=== PATIENT | female | born 1960 | race African-American/Black ===

== ENCOUNTER 2022-04-07 18:42 | Emergency (ER) | payer OTHER ==
[2022-04-07 19:34] LABS: Actual Bicarbonate (HCO3v) 21 mEq/L (22-28); Base Excess -3.1 mEq/L (-2.0 to +3.0); Chloride (VBG) 104 mmol/L (98-106); Potassium (VBG) 3.32 mmol/L (3.70-5.30); Puncture Site Other Site; Sodium 139.2 mmol/L (133-146); pH (venous) 7.42 (7.32-7.43)
[2022-04-07 19:48] LABS: Hemoglobin 12.2 g/dL (12.0-15.5); Mean Corpuscular HGB CONC 35.9 g/dL (32.0-36.0); Mean Corpuscular Volume 89.2 fl (81.6-98.3); Mean Platelet Volume 9.5 fl (7.4-10.4); Platelet Count 392 10x3/uL (150-450); RBC Distribution Width 15.1 % (11.5-14.5); Red Blood Cell (RBC) Count 3.81 10x6/uL (3.90-5.03); White Blood Cell (WBC) Count 20.6 10x3/uL (3.5-10.5)
[2022-04-07 19:51] LABS: ALT (SGPT) 25 U/L (8-55); AST (SGOT) 15 U/L (5-34); Albumin 3.6 g/dL (3.4-4.8); Alkaline Phosphatase 249 U/L (40-110); Anion Gap 18 mmol/L (10-20); BUN (Urea Nitrogen) 6 mg/dL (9.8-20.1); Bilirubin, Total 1.2 mg/dL (0.2-1.2); Calc. Creatinine Clearance 0 mL/min (70-130); Calcium 8.9 mg/dL (7.8-10.44); Carbon Dioxide 21 mmol/L (23-31); Chloride 103 mmol/L (98-107); Glucose 232 mg/dL (80-115); Potassium 3.4 mmol/L (3.5-5.1); Protein, Total 6.6 g/dL (5.8-8.1); Sodium 139 mmol/L (136-145)
[2022-04-07 20:26] LABS: Band 12 % (5-11); Eosinophils 4 % (0-10); Lymphocytes 7 % (21-51); Monocytes 5 % (0-10); Reactive Lymphocytes 2 % (0-10)
[2022-04-07 20:27] LABS: Neutrophil 70 % (42-75); Platelet Morphology Comment Appears Adequate
[2022-04-07 20:28] LABS: MDiff Complete? YES; RBC Morphology Normal
[2022-04-07 20:31] LABS: SARS-CoV-2 NAA Rapid Test Not Detected (NotDetected)
[2022-04-07] MEDS ORDERED: Ketorolac Tromethamine 30 MG/ML VIAL ONE (22:18)
[2022-04-07] MEDS ORDERED: Acetaminophen 500 MG TAB ONE (22:18)
[2022-04-07 22:30] LABS: Lactic Acid 2.6 mmol/L (0.5-2.2)
== END 2022-04-07 22:50 | disposition home or self-care (01) ==
LOC: CSHERS 18:42
DX: J20.8 Acute bronchitis due to other specified organisms (principal); E11.42 Type 2 diabetes mellitus with diabetic polyneuropathy; Z20.822 Contact with and (suspected) exposure to COVID-19; I10 Essential (primary) hypertension; E78.5 Hyperlipidemia, unspecified; F17.210 Nicotine dependence, cigarettes, uncomplicated
CPT/HCPCS: 36415; 71045; 80053; 82805; 83605; 83880; 84484; 85025; 87040; 87077; 87149; 87186; 93005; 96374; J1885; U0002

== ENCOUNTER 2022-04-09 14:12 | Inpatient (IN) | payer OTHER ==
[2022-04-09 15:19] LABS: Hemoglobin 12.8 g/dL (12.0-15.5); Mean Corpuscular HGB CONC 34.9 g/dL (32.0-36.0); Mean Corpuscular Hemoglobin 31.9 pg (27.0-33.0); Mean Corpuscular Volume 91.5 fl (81.6-98.3); Mean Platelet Volume 9.5 fl (7.4-10.4); Platelet Count 511 10x3/uL (150-450); RBC Distribution Width 14.9 % (11.5-14.5); Red Blood Cell (RBC) Count 4.01 10x6/uL (3.90-5.03)
[2022-04-09] MEDS ORDERED: Piperacillin/Tazobactam 4.5 GM VIAL ONE (15:19)
[2022-04-09 15:28] LABS: ALT (SGPT) 17 U/L (8-55); AST (SGOT) 11 U/L (5-34); Albumin 3.8 g/dL (3.4-4.8); Alkaline Phosphatase 228 U/L (40-110); Anion Gap 19 mmol/L (10-20); BUN (Urea Nitrogen) 7 mg/dL (9.8-20.1); Calc. Creatinine Clearance 0 mL/min (70-130); Calcium 9.6 mg/dL (7.8-10.44); Carbon Dioxide 24 mmol/L (23-31); Chloride 97 mmol/L (98-107); Globulin 4.4 g/dL (2.4-3.5); Glucose 221 mg/dL (80-115); Potassium 4.3 mmol/L (3.5-5.1); Protein, Total 8.2 g/dL (5.8-8.1); Sodium 136 mmol/L (136-145)
[2022-04-09 16:18] LABS: Band 10 % (5-11); Lymphocytes 8 % (21-51); Monocytes 2 % (0-10)
[2022-04-09 16:19] LABS: Neutrophil 80 % (42-75)
[2022-04-09 16:20] LABS: Large Platelets SLIGHT; Platelet Clumps SLIGHT; Platelet Morphology Comment Appears Increased
[2022-04-09 16:21] LABS: MDiff Complete? YES
[2022-04-09] MEDS ORDERED: Ondansetron PF 4 MG/2 ML Vial ONE (16:42)
[2022-04-09] MEDS ORDERED: Acetaminophen 500 MG TAB ONE (16:42)
[2022-04-09] MEDS ORDERED: Guaifenesin DM 100-10/5 ML UDCUP PO PRN (17:01)
[2022-04-09] MEDS ORDERED: Acetaminophen 325 MG TAB PO PRN (17:01)
[2022-04-09 17:11] LABS: Bilirubin Neg (Negative); Blood, Urine 25 (Negative); Clarity Cloudy (Clear); Glucose, Urine (Dipstick) 100 mg/dL (Negative); Ketone, Urine 5 mg/dL (Negative); Leukocyte 500 (Negative); Nitrite Negative (Negative); Protein, Urine (Dipstick) 100 mg/dl (Neg-Trace); Specific Gravity, Urine 1.015 (1.002-1.036); Urobilinogen Normal mg/dL (Less than 2)
[2022-04-09 17:22] LABS: WBC/HPF 21-50 HPF (0-3)
[2022-04-09 17:30] LABS: Bacteria/HPF 3+ HPF (None Seen); Oval Fat Bodies/HPF 3+ HPF (None Seen)
[2022-04-09] MEDS ORDERED: Dextrose 50% Abboject 50 ML SYRINGE SLOW IVP PRN (18:27)
[2022-04-09] MEDS ORDERED: Dextrose 5% in Water 1,000 ML IV PRN (18:27)
[2022-04-09] MEDS ORDERED: Ketorolac Tromethamine 30 MG/ML VIAL IVP SCH (18:30)
[2022-04-09] MEDS: Famotidine 20 MG TAB PO SCH (20:22)
[2022-04-09] MEDS: Cefepime 2 GM in Sodium Chloride 0.9% 100 ML IVPB SCH (20:22)
[2022-04-09] MEDS ORDERED: diphenhydrAMINE 25 MG CAP PO PRN (21:48)
[2022-04-09] MEDS: Ondansetron PF 4 MG/2 ML Vial IVP PRN (22:03)
[2022-04-09] MEDS: HYDROcodone/Acetaminophen 5/325 mg Tablet PO PRN (22:03)
[2022-04-09 22:46] VITALS: BMI 36.5
[2022-04-10] MEDS: Ketorolac Tromethamine 30 MG/ML VIAL IVP SCH ×5 (00:24→23:31)
[2022-04-10] MEDS: HYDROcodone/Acetaminophen 5/325 mg Tablet PO PRN ×4 (01:53→20:29)
[2022-04-10] MEDS ORDERED: ALPRAZolam 0.25 MG TAB PO PRN (04:14)
[2022-04-10] MEDS ORDERED: diphenhydrAMINE 12.5 MG/5 ML UDCUP PO SCH (04:15)
[2022-04-10] MEDS: Senokot S 8.6-50 MG TAB PO PRN (04:27)
[2022-04-10 04:54] LABS: #Basophils 0.1 10x3/uL (0.0-0.2); #Eosinphils 0.1 10x3/uL (0.0-0.5); #Monocytes 1.3 10x3/uL (0.0-1.1); #Neutrophils 15.2 10x3/uL (1.5-8.4); %Basophils 0.6 % (0.0-2.0); %Eosinophils 0.6 % (0.0-6.0); %Lymphocytes 13.8 % (18.0-47.0); %Monocytes 6.4 % (0.0-10.0); %Neutrophils 77.6 % (40.0-75.0); Hemoglobin 11.3 g/dL (12.0-15.5); Mean Corpuscular HGB CONC 35.5 g/dL (32.0-36.0); Mean Corpuscular Hemoglobin 31.6 pg (27.0-33.0); Mean Corpuscular Volume 88.8 fl (81.6-98.3); Mean Platelet Volume 9.6 fl (7.4-10.4); Platelet Count 456 10x3/uL (150-450); Red Blood Cell (RBC) Count 3.58 10x6/uL (3.90-5.03); White Blood Cell (WBC) Count 19.6 10x3/uL (3.5-10.5)
[2022-04-10 05:13] LABS: Anion Gap 16 mmol/L (10-20); BUN (Urea Nitrogen) 9 mg/dL (9.8-20.1); Calc. Creatinine Clearance 127 mL/min (70-130); Calcium 8.4 mg/dL (7.8-10.44); Carbon Dioxide 21 mmol/L (23-31); Chloride 102 mmol/L (98-107); Glucose 139 mg/dL (80-115); Potassium 3.4 mmol/L (3.5-5.1); Sodium 136 mmol/L (136-145)
[2022-04-10] MEDS: Ondansetron PF 4 MG/2 ML Vial IVP PRN ×3 (05:50→18:40)
[2022-04-10] MEDS: Famotidine 20 MG TAB PO SCH ×2 (10:08→20:30)
[2022-04-10] MEDS: Enoxaparin Sodium 40 MG/0.4 ML SYRINGE SC SCH (10:08)
[2022-04-10] MEDS: Nicotine 14 MG PATCH TD SCH (10:08)
[2022-04-10] MEDS: Cefepime 2 GM in Sodium Chloride 0.9% 100 ML IVPB SCH (10:08)
[2022-04-10] MEDS: Lantus 1000 UNITS/10 ML VIAL SC SCH (10:09)
[2022-04-10] MEDS: Insulin Regular 300 UNITS/3 ML VIAL SC PRN (13:12)
[2022-04-10] MEDS: ALPRAZolam 0.25 MG TAB PO PRN (15:59)
[2022-04-10] MEDS ORDERED: Dextrose 5% in Water 1,000 ML ONE (16:00)
[2022-04-10] MEDS: Lactated Ringer's 1,000 ML IV SCH (17:24)
[2022-04-10] MEDS: traZODone HCl 50 MG TAB PO PRN (20:29)
[2022-04-10] MEDS: Melatonin 3 MG TAB PO PRN (20:30)
[2022-04-11] MEDS: ALPRAZolam 0.25 MG TAB PO PRN (01:31)
[2022-04-11] MEDS: HYDROcodone/Acetaminophen 5/325 mg Tablet PO PRN ×2 (01:31→21:32)
[2022-04-11] MEDS: Ondansetron PF 4 MG/2 ML Vial IVP PRN (01:32)
[2022-04-11 04:23] LABS: ALT (SGPT) 11 U/L (8-55); AST (SGOT) 9 U/L (5-34); Albumin 3.7 g/dL (3.4-4.8); Alkaline Phosphatase 186 U/L (40-110); Anion Gap 20 mmol/L (10-20); BUN (Urea Nitrogen) 7 mg/dL (9.8-20.1); Calc. Creatinine Clearance 141 mL/min (70-130); Carbon Dioxide 20 mmol/L (23-31); Chloride 98 mmol/L (98-107); Globulin 4.1 g/dL (2.4-3.5); Glucose 160 mg/dL (80-115); Potassium 3.2 mmol/L (3.5-5.1); Protein, Total 7.8 g/dL (5.8-8.1); Sodium 135 mmol/L (136-145)
[2022-04-11] MEDS: Ketorolac Tromethamine 30 MG/ML VIAL IVP SCH ×4 (06:18→23:32)
[2022-04-11] MEDS: Lactated Ringer's 1,000 ML IV SCH (06:19)
[2022-04-11] MEDS: Amlodipine 5 MG TAB PO SCH (09:31)
[2022-04-11] MEDS: Enoxaparin Sodium 40 MG/0.4 ML SYRINGE SC SCH (09:31)
[2022-04-11] MEDS: Lantus 1000 UNITS/10 ML VIAL SC SCH (09:31)
[2022-04-11] MEDS: Famotidine 20 MG TAB PO SCH ×2 (09:32→21:17)
[2022-04-11] MEDS: Nicotine 14 MG PATCH TD SCH (09:32)
[2022-04-11] MEDS: Atorvastatin Calcium 10 MG TAB PO SCH (09:32)
[2022-04-11] MEDS: tiZANidine HCl 4 MG TAB PO SCH ×4 (09:32→21:17)
[2022-04-11] MEDS ORDERED: Electrolyte Replacement Protocol 1 EACH FS SCH (11:00)
[2022-04-11 11:53] LABS: #Basophils 0.1 10x3/uL (0.0-0.2); #Monocytes 1.3 10x3/uL (0.0-1.1); #Neutrophils 14.9 10x3/uL (1.5-8.4); %Basophils 0.7 % (0.0-2.0); %Eosinophils 0.2 % (0.0-6.0); %Lymphocytes 12.1 % (18.0-47.0); %Monocytes 6.9 % (0.0-10.0); Hemoglobin 12.5 g/dL (12.0-15.5); Mean Corpuscular HGB CONC 35.3 g/dL (32.0-36.0); Mean Corpuscular Hemoglobin 31.9 pg (27.0-33.0); Mean Corpuscular Volume 90.3 fl (81.6-98.3); Mean Platelet Volume 9.3 fl (7.4-10.4); Platelet Count 489 10x3/uL (150-450); RBC Distribution Width 14.7 % (11.5-14.5); Red Blood Cell (RBC) Count 3.92 10x6/uL (3.90-5.03)
[2022-04-11] MEDS: Potassium Chloride 20 MEQ in Premix Bag 1 BAG IVPB SCH ×2 (12:16→19:08)
[2022-04-11] MEDS: Insulin Regular 300 UNITS/3 ML VIAL SC PRN ×3 (12:16→21:34)
[2022-04-11 12:19] LABS: Magnesium 1.6 mg/dL (1.6-2.6)
[2022-04-11] MEDS ORDERED: Magnesium 2 GM/50 ML(in water) 2 GM in Premix Bag 1 BAG IVPB SCH ×2 (14:00→21:00)
[2022-04-11] MEDS ORDERED: cefTRIAXone\\ROCEPHIN 2 GM in Sodium Chloride 0.9% 100 ML IVPB SCH ×2 (14:00→20:00)
[2022-04-11 16:45] LABS: Hemoglobin A1c 8.4 % (4.0-6.0)
[2022-04-11] MEDS ORDERED: Potassium Chloride 20 MEQ in Premix Bag 1 BAG IVPB SCH (21:00)
[2022-04-11] MEDS: cefTRIAXone\\ROCEPHIN 2 GM in Sodium Chloride 0.9% 100 ML IVPB SCH (23:24)
[2022-04-11] MEDS: Melatonin 3 MG TAB PO PRN (23:29)
[2022-04-12] MEDS: HYDROcodone/Acetaminophen 5/325 mg Tablet PO PRN ×4 (02:05→22:29)
[2022-04-12] MEDS: Ondansetron PF 4 MG/2 ML Vial IVP PRN (02:11)
[2022-04-12 05:24] LABS: #Basophils 0.2 10x3/uL (0.0-0.2); #Eosinphils 0.1 10x3/uL (0.0-0.5); #Monocytes 1.6 10x3/uL (0.0-1.1); #Neutrophils 13.7 10x3/uL (1.5-8.4); %Basophils 0.9 % (0.0-2.0); %Eosinophils 0.4 % (0.0-6.0); %Lymphocytes 15.1 % (18.0-47.0); %Monocytes 8.5 % (0.0-10.0); %Neutrophils 71.2 % (40.0-75.0); Hemoglobin 12.6 g/dL (12.0-15.5); Mean Corpuscular Hemoglobin 31.3 pg (27.0-33.0); Mean Corpuscular Volume 89.6 fl (81.6-98.3); Mean Platelet Volume 9.6 fl (7.4-10.4); Platelet Count 552 10x3/uL (150-450); RBC Distribution Width 14.4 % (11.5-14.5); Red Blood Cell (RBC) Count 4.02 10x6/uL (3.90-5.03); White Blood Cell (WBC) Count 19.2 10x3/uL (3.5-10.5)
[2022-04-12] MEDS: Ketorolac Tromethamine 30 MG/ML VIAL IVP SCH ×4 (05:27→23:50)
[2022-04-12] MEDS: Insulin Regular 300 UNITS/3 ML VIAL SC PRN ×2 (05:29→13:14)
[2022-04-12] MEDS: Amlodipine 5 MG TAB PO SCH (05:44)
[2022-04-12 07:23] LABS: Phosphorus 2.5 mg/dL (2.3-4.7)
[2022-04-12 07:54] LABS: ALT (SGPT) 11 U/L (8-55); AST (SGOT) 16 U/L (5-34); Albumin 3.4 g/dL (3.4-4.8); Alkaline Phosphatase 169 U/L (40-110); Anion Gap 20 mmol/L (10-20); BUN (Urea Nitrogen) 13 mg/dL (9.8-20.1); Bilirubin, Total 0.8 mg/dL (0.2-1.2); Calc. Creatinine Clearance 130 mL/min (70-130); Calcium 8.8 mg/dL (7.8-10.44); Carbon Dioxide 21 mmol/L (23-31); Chloride 98 mmol/L (98-107); Globulin 4.1 g/dL (2.4-3.5); Glucose 158 mg/dL (80-115); Magnesium 2.1 mg/dL (1.6-2.6); Potassium 4.2 mmol/L (3.5-5.1); Protein, Total 7.5 g/dL (5.8-8.1); Sodium 135 mmol/L (136-145)
[2022-04-12] MEDS: Ondansetron ODT 4 MG TAB PO PRN ×2 (08:33→18:03)
[2022-04-12] MEDS: ALPRAZolam 0.25 MG TAB PO PRN ×2 (08:35→22:30)
[2022-04-12] MEDS: tiZANidine HCl 4 MG TAB PO SCH ×4 (08:35→22:16)
[2022-04-12] MEDS: Atorvastatin Calcium 10 MG TAB PO SCH (08:35)
[2022-04-12] MEDS: Lantus 1000 UNITS/10 ML VIAL SC SCH (08:36)
[2022-04-12] MEDS: Enoxaparin Sodium 40 MG/0.4 ML SYRINGE SC SCH (08:36)
[2022-04-12] MEDS: Famotidine 20 MG TAB PO SCH ×2 (08:36→22:16)
[2022-04-12] MEDS: Nicotine 14 MG PATCH TD SCH (09:19)
[2022-04-12] MEDS: Senokot S 8.6-50 MG TAB PO PRN (09:24)
[2022-04-12] MEDS: traZODone HCl 50 MG TAB PO PRN (22:30)
[2022-04-12] MEDS: Melatonin 3 MG TAB PO PRN (22:30)
[2022-04-12] MEDS: cefTRIAXone\\ROCEPHIN 2 GM in Sodium Chloride 0.9% 100 ML IVPB SCH (23:50)
[2022-04-13] MEDS: Ondansetron PF 4 MG/2 ML Vial IVP PRN (02:48)
[2022-04-13] MEDS: HYDROcodone/Acetaminophen 5/325 mg Tablet PO PRN (04:33)
[2022-04-13 05:14] LABS: #Basophils 0.2 10x3/uL (0.0-0.2); #Eosinphils 0.2 10x3/uL (0.0-0.5); #Monocytes 1.3 10x3/uL (0.0-1.1); #Neutrophils 12.4 10x3/uL (1.5-8.4); %Lymphocytes 19.5 % (18.0-47.0); %Monocytes 7.2 % (0.0-10.0); %Neutrophils 67.5 % (40.0-75.0); Hemoglobin 12.9 g/dL (12.0-15.5); Mean Corpuscular HGB CONC 35.5 g/dL (32.0-36.0); Mean Corpuscular Hemoglobin 31.9 pg (27.0-33.0); Mean Corpuscular Volume 89.9 fl (81.6-98.3); Mean Platelet Volume 9.4 fl (7.4-10.4); Platelet Count 617 10x3/uL (150-450); RBC Distribution Width 14.5 % (11.5-14.5); Red Blood Cell (RBC) Count 4.04 10x6/uL (3.90-5.03); White Blood Cell (WBC) Count 18.3 10x3/uL (3.5-10.5)
[2022-04-13] MEDS: Ketorolac Tromethamine 30 MG/ML VIAL IVP SCH (05:26)
[2022-04-13 05:33] LABS: ALT (SGPT) 9 U/L (8-55); AST (SGOT) 10 U/L (5-34); Albumin 3.7 g/dL (3.4-4.8); Alkaline Phosphatase 171 U/L (40-110); Anion Gap 19 mmol/L (10-20); BUN (Urea Nitrogen) 10 mg/dL (9.8-20.1); Bilirubin, Total 0.7 mg/dL (0.2-1.2); Calc. Creatinine Clearance 136 mL/min (70-130); Calcium 8.8 mg/dL (7.8-10.44); Carbon Dioxide 24 mmol/L (23-31); Chloride 97 mmol/L (98-107); Globulin 3.8 g/dL (2.4-3.5); Glucose 156 mg/dL (80-115); Potassium 3.5 mmol/L (3.5-5.1); Protein, Total 7.5 g/dL (5.8-8.1); Sodium 136 mmol/L (136-145)
[2022-04-13 08:52] VITALS: BP 142/88; TEMP 98.9
[2022-04-13] MEDS ORDERED: Polyethylene Glycol 3350 17 GM Packet PO SCH (09:00)
[2022-04-13] MEDS: Amlodipine 5 MG TAB PO SCH (09:53)
[2022-04-13] MEDS: Famotidine 20 MG TAB PO SCH (09:53)
[2022-04-13] MEDS: Atorvastatin Calcium 10 MG TAB PO SCH (09:53)
[2022-04-13] MEDS: tiZANidine HCl 4 MG TAB PO SCH (09:53)
[2022-04-13] MEDS: Lantus 1000 UNITS/10 ML VIAL SC SCH (09:55)
[2022-04-13] MEDS: Enoxaparin Sodium 40 MG/0.4 ML SYRINGE SC SCH (10:21)
[2022-04-13] MEDS: Nicotine 14 MG PATCH TD SCH (10:21)
[2022-04-13] MEDS: ALPRAZolam 0.25 MG TAB PO PRN (10:22)
== END 2022-04-13 12:00 | disposition home or self-care (01) | DRG 871 ==
LOC: CSHERS 14:12 → CSHTELE 16:58
PROVIDERS: ADMIT Hospitalist; ATTEND Family Medicine
DX: A41.59 Other Gram-negative sepsis (principal); G93.41 Metabolic encephalopathy; Z16.29 Resistance to other single specified antibiotic; S31.000A Unspecified open wound of lower back and pelvis without penetration into retroperitoneum, initial encounter; K21.9 Gastro-esophageal reflux disease without esophagitis; E11.9 Type 2 diabetes mellitus without complications; E78.00 Pure hypercholesterolemia, unspecified; I10 Essential (primary) hypertension; M19.90 Unspecified osteoarthritis, unspecified site; F17.200 Nicotine dependence, unspecified, uncomplicated; R65.20 Severe sepsis without septic shock; E78.5 Hyperlipidemia, unspecified; K59.00 Constipation, unspecified; K76.0 Fatty (change of) liver, not elsewhere classified; Z79.84 Long term (current) use of oral hypoglycemic drugs; Z98.51 Tubal ligation status; Z79.899 Other long term (current) drug therapy; Z79.4 Long term (current) use of insulin; Z86.73 Personal history of transient ischemic attack (TIA), and cerebral infarction without residual deficits; Z98.890 Other specified postprocedural states; Z79.82 Long term (current) use of aspirin
CPT/HCPCS: 36415; 36416; 71045; 74176; 76705; 78227; 80048; 80053; 81001; 83036; 83605; 83735; 83880; 84100; 84145; 85025; 85652; 86140; 87040; 87070; 87077; 87086; 87149; 87186; 87205; 93306; 94760; 96365; 96375; A9537; J0692; J0696; J1650; J1815; J1885; J2405; J2543; J3475; J3480; J3490; J7070; J7120; Q0162; Q0163

== ENCOUNTER 2022-09-05 14:12 | Emergency (ER) | payer OTHER ==
[2022-09-05] MEDS ORDERED: Acetaminophen 500 MG TAB ONE (15:18)
[2022-09-05] MEDS ORDERED: predniSONE 20 MG TAB ONE (15:18)
[2022-09-05] MEDS ORDERED: tiZANidine HCl 4 MG TAB PO SCH (15:30)
[2022-09-05] MEDS ORDERED: Lantus 1000 UNITS/10 ML VIAL SC SCH (15:30)
== END 2022-09-05 16:15 | disposition home or self-care (01) ==
LOC: CSHERS 14:12
DX: M17.0 Bilateral primary osteoarthritis of knee (principal); E11.65 Type 2 diabetes mellitus with hyperglycemia; E78.00 Pure hypercholesterolemia, unspecified; I10 Essential (primary) hypertension; K21.9 Gastro-esophageal reflux disease without esophagitis
CPT/HCPCS: 99284; J1815; J7512

== ENCOUNTER 2024-04-03 03:02 | Emergency (ER) | payer MEDICARE, OTHER ==
[2024-04-03] MEDS ORDERED: Ondansetron PF 4 MG/2 ML Vial ONE (03:32)
[2024-04-03 04:09] LABS: ALT (SGPT) 25 U/L (8-55); AST (SGOT) 12 U/L (5-34); Albumin 3.4 g/dL (3.4-4.8); Alkaline Phosphatase 99 U/L (40-110); Anion Gap 15 mmol/L (10-20); BUN (Urea Nitrogen) 11 mg/dL (9.8-20.1); Bilirubin, Total 0.7 mg/dL (0.2-1.2); Calc. Creatinine Clearance 0 mL/min (70-130); Calcium 8.9 mg/dL (7.8-10.44); Carbon Dioxide 30 mmol/L (23-31); Chloride 98 mmol/L (98-107); Estimated GFR 73; Globulin 3.3 g/dL (2.4-3.5); Glucose 191 mg/dL (80-115); Lipase 28 U/L (8-78); Magnesium 1.6 mg/dL (1.6-2.6); Potassium 4.4 mmol/L (3.5-5.1); Protein, Total 6.7 g/dL (5.8-8.1); Sodium 139 mmol/L (136-145); Troponin I Less than 0.010 ng/mL (< 0.028)
[2024-04-03 04:20] LABS: #Eosinphils 0.08 10x3/uL (0.0-0.5); #Monocytes 0.68 10x3/uL (0.0-1.1); #Neutrophils 12.47 10x3/uL (1.5-8.4); %Basophils 0.6 % (0.0-2.0); %Eosinophils 0.5 % (0.0-6.0); %Lymphocytes 15.7 % (18.0-47.0); %Monocytes 4.3 % (0.0-10.0); %Neutrophils 78.5 % (40.0-75.0); Hematocrit 38.6 % (34.9-44.5); Hemoglobin 13.4 g/dL (12.0-15.5); Mean Corpuscular HGB CONC 34.7 g/dL (32.0-36.0); Mean Corpuscular Hemoglobin 34.9 pg (27.0-33.0); Mean Corpuscular Volume 100.5 fL (81.6-98.3); Platelet Count 492 10x3/uL (150-450); RBC Distribution Width 15.7 % (11.5-14.5); Red Blood Cell (RBC) Count 3.84 10x6/uL (3.90-5.03); White Blood Cell (WBC) Count 15.9 10x3/uL (3.5-10.5)
[2024-04-03 07:55] LABS: Bilirubin Neg (Negative); Blood, Urine Negative (Negative); Glucose, Urine (Dipstick) Normal (Negative); Ketone, Urine Negative (Negative); Leukocyte Negative (Negative); Nitrite Negative (Negative); Protein, Urine (Dipstick) Negative (Neg-Trace); Urobilinogen Normal mg/dL (Less than 2)
[2024-04-03 08:02] LABS: Clarity Clear (Clear)
[2024-04-03 08:08] LABS: Bacteria/HPF None Seen HPF (None Seen); CAUTI Indications for Culture Dysuria,urgency,freq; RBC/HPF None Seen HPF (0-3); Squamous Epithelial 0-3 HPF (0-3); WBC/HPF 0-3 HPF (0-3)
[2024-04-03 08:09] LABS: Urine Culture Reflex No No
[2024-04-03] MEDS ORDERED: Iopamidol 300 61% 100 ML VIAL FS ONE (10:44)
== END 2024-04-03 09:00 | disposition home or self-care (01) ==
LOC: CSHERS 03:02
DX: K56.41 Fecal impaction (principal); I11.0 Hypertensive heart disease with heart failure; I50.9 Heart failure, unspecified; E11.9 Type 2 diabetes mellitus without complications; E78.5 Hyperlipidemia, unspecified; K21.9 Gastro-esophageal reflux disease without esophagitis; F17.210 Nicotine dependence, cigarettes, uncomplicated; Z79.899 Other long term (current) drug therapy; Z79.84 Long term (current) use of oral hypoglycemic drugs; Z79.82 Long term (current) use of aspirin
CPT/HCPCS: 51701; 74177; 80053; 81001; 83605; 83690; 83735; 84484; 85025; 93005; 96361; 96374; 99284; J2405; Q9967; 36415

== ENCOUNTER 2024-05-13 15:31 | Inpatient (IN) | payer OTHER ==
[2024-05-13 17:00] LABS: #Basophils 0.04 10x3/uL (0.0-0.2); #Eosinphils 0.07 10x3/uL (0.0-0.5); #Monocytes 0.44 10x3/uL (0.0-1.1); %Basophils 0.5 % (0.0-2.0); %Eosinophils 0.9 % (0.0-6.0); %Lymphocytes 11.6 % (18.0-47.0); %Monocytes 5.5 % (0.0-10.0); %Neutrophils 80.8 % (40.0-75.0); Hematocrit 34.8 % (34.9-44.5); Hemoglobin 12.4 g/dL (12.0-15.5); Mean Corpuscular HGB CONC 35.6 g/dL (32.0-36.0); Mean Corpuscular Hemoglobin 34.7 pg (27.0-33.0); Mean Corpuscular Volume 97.5 fL (81.6-98.3); Mean Platelet Volume 9.4 fL (7.4-10.4); Platelet Count 297 10x3/uL (150-450); Red Blood Cell (RBC) Count 3.57 10x6/uL (3.90-5.03)
[2024-05-13 17:19] LABS: ALT (SGPT) 36 U/L (8-55); AST (SGOT) 108 U/L (5-34); Albumin 3.3 g/dL (3.4-4.8); Alkaline Phosphatase 147 U/L (40-110); Anion Gap 16 mmol/L (10-20); BUN (Urea Nitrogen) 6 mg/dL (9.8-20.1); Bilirubin, Total 0.6 mg/dL (0.2-1.2); Calc. Creatinine Clearance 0 mL/min (70-130); Calcium 8.8 mg/dL (7.8-10.44); Carbon Dioxide 23 mmol/L (23-31); Chloride 98 mmol/L (98-107); Estimated GFR 88; Globulin 3.6 g/dL (2.4-3.5); Glucose 117 mg/dL (80-115); Potassium 3.5 mmol/L (3.5-5.1); Protein, Total 6.9 g/dL (5.8-8.1); Sodium 133 mmol/L (136-145)
[2024-05-13 17:20] LABS: Troponin I Less than 0.010 ng/mL (< 0.028)
[2024-05-13 17:21] LABS: Influenza A by NAA Not Detected (NotDetected); Influenza B by NAA Not Detected (NotDetected); SARS-CoV-2 NAA Rapid Test DETECTED (NotDetected)
[2024-05-13] MEDS ORDERED: Dexamethasone 10 MG/ML VIAL ONE (18:45)
[2024-05-13] MEDS ORDERED: Glucagon 1 MG/ML KIT IM PRN (19:12)
[2024-05-13] MEDS ORDERED: Dextrose 50% Abboject 50 ML SYRINGE SLOW IVP PRN (19:12)
[2024-05-13] MEDS ORDERED: Dextrose 5% in Water 1,000 ML IV PRN (19:12)
[2024-05-13] MEDS ORDERED: Calcium Carbonate 500 MG ChewTAB PO PRN (19:13)
[2024-05-13] MEDS ORDERED: Senokot S 8.6-50 MG TAB PO PRN (19:13)
[2024-05-13] MEDS ORDERED: Ventolin HFA Inhaler 60 PUFF INHALER INH PRN (19:15)
[2024-05-13] MEDS ORDERED: Lactated Ringer's 1,000 ML IV SCH (19:30)
[2024-05-13 21:10] VITALS: BMI 41.8
[2024-05-13] MEDS: Benzonatate 100 MG CAP PO SCH (21:23)
[2024-05-13] MEDS: Sodium Chloride 0.9% 1,000 ML IV SCH (21:23)
[2024-05-13] MEDS: traMADol HCl 50 MG TAB PO PRN (21:24)
[2024-05-13] MEDS: Acetaminophen 325 MG TAB PO PRN (21:24)
[2024-05-13] MEDS: metFORMIN 500 MG TAB PO SCH (21:25)
[2024-05-13] MEDS: DULoxetine 30 MG CAP PO SCH (21:25)
[2024-05-13] MEDS: Nicotine 14 MG PATCH TD SCH (21:26)
[2024-05-13] MEDS: Guaifenesin DM 100-10/5 ML UDCUP PO PRN (21:51)
[2024-05-13] MEDS: Insulin Lispro 100 UNIT/ML 10 ML VIAL SC PRN (21:52)
[2024-05-13] MEDS: Gabapentin 300 MG CAP PO SCH (21:58)
[2024-05-13] MEDS: Ibuprofen 800 MG TAB PO SCH (21:59)
[2024-05-13] MEDS: HYDROcodone/Acetaminophen 5/325 mg Tablet PO PRN (23:10)
[2024-05-13] MEDS: REMDESIVIR 200 MG in Sodium Chloride 0.9% 250 ML 210 ML IV SCH (23:11)
[2024-05-13 23:17] LABS: Legionella Urinary Ag Negative (Negative); Strep pneumo Urine Ag NEGATIVE (NEGATIVE)
[2024-05-14] MEDS: Ventolin HFA Inhaler 60 PUFF INHALER INH SCH (02:34)
[2024-05-14 04:47] LABS: Anion Gap 16 mmol/L (10-20); BUN (Urea Nitrogen) 9 mg/dL (9.8-20.1); Calc. Creatinine Clearance 147 mL/min (70-130); Calcium 8.5 mg/dL (7.8-10.44); Carbon Dioxide 21 mmol/L (23-31); Chloride 102 mmol/L (98-107); Estimated GFR 88; Glucose 244 mg/dL (80-115); Lactic Acid 0.7 mmol/L (0.5-2.2); Magnesium 1.6 mg/dL (1.6-2.6); Potassium 3.8 mmol/L (3.5-5.1); Sodium 135 mmol/L (136-145)
[2024-05-14 04:48] LABS: ALT (SGPT) 65 U/L (8-55); AST (SGOT) 145 U/L (5-34); Albumin 2.9 g/dL (3.4-4.8); Alkaline Phosphatase 174 U/L (40-110); Bilirubin, Direct 0.2 mg/dL (0.1-0.3); Bilirubin, Total 0.4 mg/dL (0.2-1.2); CK (CPK) 38 U/L (29-168); Cardiac Risk 4.4 (Less than 4.5); Cholesterol 189 mg/dl (< 200 Desired); HDL Cholesterol 43 mg/dL (>60 Neg Risk); LDL Cholesterol, Calculated 133 mg/dL; Protein, Total 6.5 g/dL (5.8-8.1); Triglycerides 67 mg/dL (Less than 150)
[2024-05-14] MEDS: Ondansetron PF 4 MG/2 ML Vial IVP PRN (08:28)
[2024-05-14] MEDS: Sertraline 25 MG TAB PO SCH (08:29)
[2024-05-14] MEDS: Pantoprazole DR 40 MG TAB PO SCH (08:29)
[2024-05-14] MEDS: Amlodipine 5 MG TAB PO SCH (08:29)
[2024-05-14] MEDS: Atorvastatin Calcium 10 MG TAB PO SCH (08:29)
[2024-05-14] MEDS: Enoxaparin 40 MG (0.4 mL) SYRINGE SC SCH (08:29)
[2024-05-14] MEDS: Zinc Sulfate 220 MG CAP PO SCH (08:29)
[2024-05-14] MEDS: Aspirin Chewable 81 MG TAB PO SCH (08:30)
[2024-05-14] MEDS: Dexamethasone 4 mg/ml Vial SLOW IVP SCH (08:30)
[2024-05-14] MEDS: Mometasone/Formoterol 200/5 60 PUFF INH SCH (12:30)
[2024-05-14] MEDS ORDERED: Acetaminophen 325 MG TAB PO PRN (19:56)
[2024-05-14] MEDS: oxyCODONE 5 MG TAB PO PRN (21:55)
[2024-05-14] MEDS: tiZANidine HCl 4 MG TAB PO PRN (21:56)
[2024-05-15] MEDS: REMDESIVIR 100 MG in Sodium Chloride 0.9% 250 ML 230 ML IV SCH (00:25)
[2024-05-15 04:04] LABS: Hematocrit 34.1 % (34.9-44.5); Mean Corpuscular HGB CONC 35.2 g/dL (32.0-36.0); Mean Corpuscular Hemoglobin 34.1 pg (27.0-33.0); Mean Corpuscular Volume 96.9 fL (81.6-98.3); Mean Platelet Volume 9.8 fL (7.4-10.4); Platelet Count 289 10x3/uL (150-450); RBC Distribution Width 15.1 % (11.5-14.5); Red Blood Cell (RBC) Count 3.52 10x6/uL (3.90-5.03); White Blood Cell (WBC) Count 10.2 10x3/uL (3.5-10.5)
[2024-05-15 04:06] LABS: Anion Gap 16 mmol/L (10-20); BUN (Urea Nitrogen) 16 mg/dL (9.8-20.1); Calc. Creatinine Clearance 130 mL/min (70-130); Calcium 8.1 mg/dL (7.8-10.44); Carbon Dioxide 18 mmol/L (23-31); Chloride 102 mmol/L (98-107); Estimated GFR 76; Glucose 247 mg/dL (80-115); Potassium 3.6 mmol/L (3.5-5.1); Sodium 132 mmol/L (136-145)
[2024-05-15 06:15] LABS: MDiff Complete? YES
[2024-05-15 06:18] LABS: Band 2 % (5-11); Lymphocytes 19 % (21-51); Monocytes 6 % (0-10); Neutrophil 73 % (42-75)
[2024-05-15 06:19] LABS: Platelet Adequacy Comment Appears Adequate; RBC Morph Comment Within Normal Limits
[2024-05-15 09:35] VITALS: BP 112/62; TEMP 97.6
== END 2024-05-15 09:00 | disposition home or self-care (01) | DRG 177 ==
LOC: CSHERS 15:31 → CSHTELE 19:12
PROVIDERS: ADMIT Student in an Organized Health Care Education/Training Program; ATTEND Internal Medicine
PROC: XW033E5 Introduction of Remdesivir Anti-infective into Peripheral Vein, Percutaneous Approach, New Technology Group 5 (ICD-10-PCS; principal; 2024-05-14)
PROC: 8E0ZXY6 Isolation (ICD-10-PCS; 2024-05-14)
PROC: 3E0333Z Introduction of Anti-inflammatory into Peripheral Vein, Percutaneous Approach (ICD-10-PCS; 2024-05-14)
DX: U07.1 COVID-19 (principal); J12.82 Pneumonia due to coronavirus disease 2019; J96.01 Acute respiratory failure with hypoxia; I50.32 Chronic diastolic (congestive) heart failure; F17.210 Nicotine dependence, cigarettes, uncomplicated; F32.A Depression, unspecified; G89.29 Other chronic pain; I11.0 Hypertensive heart disease with heart failure; E78.5 Hyperlipidemia, unspecified; K21.9 Gastro-esophageal reflux disease without esophagitis; F41.9 Anxiety disorder, unspecified; M19.90 Unspecified osteoarthritis, unspecified site; E11.9 Type 2 diabetes mellitus without complications; E86.0 Dehydration; R53.81 Other malaise; Z98.890 Other specified postprocedural states; Z71.89 Other specified counseling
CPT/HCPCS: 36415; 36416; 70450; 71045; 80048; 80053; 80061; 80076; 82550; 83605; 83735; 83880; 84443; 84484; 85025; 85379; 86140; 87449; 87899; 93005; 93306; 93970; 94664; 94760; 96374; J0248; J1100; J1650; J1815; J2405; J7050

== ENCOUNTER 2024-05-18 11:04 | Emergency (ER) | payer OTHER ==
[2024-05-18 12:34] LABS: #Basophils 0.04 10x3/uL (0.0-0.2); #Neutrophils 7.77 10x3/uL (1.5-8.4); %Basophils 0.4 % (0.0-2.0); %Lymphocytes 14.5 % (18.0-47.0); %Monocytes 5.1 % (0.0-10.0); %Neutrophils 78.5 % (40.0-75.0); Hematocrit 35.9 % (34.9-44.5); Hemoglobin 12.7 g/dL (12.0-15.5); Mean Corpuscular HGB CONC 35.4 g/dL (32.0-36.0); Mean Corpuscular Hemoglobin 33.4 pg (27.0-33.0); Mean Corpuscular Volume 94.5 fL (81.6-98.3); Mean Platelet Volume 9.3 fL (7.4-10.4); Platelet Count 383 10x3/uL (150-450); RBC Distribution Width 14.8 % (11.5-14.5); White Blood Cell (WBC) Count 9.9 10x3/uL (3.5-10.5)
[2024-05-18 12:43] LABS: INR-International Normal Ratio 0.9; PTT 23.3 sec (22.0-33.0); Prothrombin Time 10.2 sec (9.5-12.1)
[2024-05-18 12:53] LABS: ALT (SGPT) 20 U/L (8-55); AST (SGOT) 6 U/L (5-34); Albumin 3.4 g/dL (3.4-4.8); Alkaline Phosphatase 146 U/L (40-110); Anion Gap 19 mmol/L (10-20); BUN (Urea Nitrogen) 12 mg/dL (9.8-20.1); Bilirubin, Total 0.4 mg/dL (0.2-1.2); Calc. Creatinine Clearance 0 mL/min (70-130); Calcium 9.4 mg/dL (7.8-10.44); Carbon Dioxide 21 mmol/L (23-31); Chloride 98 mmol/L (98-107); Estimated GFR 74; Globulin 3.3 g/dL (2.4-3.5); Glucose 357 mg/dL (80-115); Lipase 61 U/L (8-78); Potassium 3.8 mmol/L (3.5-5.1); Protein, Total 6.7 g/dL (5.8-8.1); Sodium 134 mmol/L (136-145)
[2024-05-18 12:55] LABS: Troponin I Less than 0.010 ng/mL (< 0.028)
[2024-05-18 13:09] LABS: D-Dimer Test 0.34 mcg/mL (0.19-0.50)
== END 2024-05-18 13:48 | disposition home or self-care (01) ==
LOC: CSHERS 11:04
DX: U07.1 COVID-19 (principal); S03.2XXA Dislocation of tooth, initial encounter; F17.210 Nicotine dependence, cigarettes, uncomplicated; I11.0 Hypertensive heart disease with heart failure; I50.9 Heart failure, unspecified; E11.9 Type 2 diabetes mellitus without complications; W19.XXXA Unspecified fall, initial encounter; Z86.73 Personal history of transient ischemic attack (TIA), and cerebral infarction without residual deficits; Z79.84 Long term (current) use of oral hypoglycemic drugs
CPT/HCPCS: 36415; 70450; 70486; 71045; 80053; 83690; 83880; 84484; 85025; 85379; 85610; 85730; 93005

== ENCOUNTER 2024-05-18 22:05 | Emergency (ER) | payer OTHER | END 2024-05-18 22:52 | disposition home or self-care (01) | LOC: CSHERS 22:05 | DX: U07.1 COVID-19 (principal); I11.0 Hypertensive heart disease with heart failure; I50.9 Heart failure, unspecified; E11.9 Type 2 diabetes mellitus without complications; F17.210 Nicotine dependence, cigarettes, uncomplicated; E78.5 Hyperlipidemia, unspecified; Z86.73 Personal history of transient ischemic attack (TIA), and cerebral infarction without residual deficits | CPT/HCPCS: 36415; 70450; 70486; 71045; 80053; 83690; 83880; 84484; 85025; 85379; 85610; 85730; 93005; 99283 ==

== ENCOUNTER 2025-07-02 10:55 | Emergency (ER) | payer OTHER ==
[2025-07-02] MEDS ORDERED: Mineral Oil ENEMA ONE (11:15)
[2025-07-02 11:30] LABS: #Basophils 0.07 10x3/uL (0.0-0.2); #Eosinophils 0.05 10x3/uL (0.0-0.5); #Monocytes 0.66 10x3/uL (0.0-1.1); #Neutrophils 10.11 10x3/uL (1.5-8.4); %Basophils 0.5 % (0.0-2.0); %Eosinophils 0.4 % (0.0-6.0); %Lymphocytes 15.6 % (18.0-47.0); %Monocytes 5.1 % (0.0-10.0); %Neutrophils 78.0 % (40.0-75.0); Hematocrit 39.1 % (34.9-44.5); Hemoglobin 12.7 g/dL (12.0-15.5); Mean Corpuscular Hemoglobin 31.4 pg (27.0-33.0); Mean Corpuscular Volume 96.8 fL (81.6-98.3); Platelet Count 398 10x3/uL (150-450); Red Blood Cell (RBC) Count 4.04 10x6/uL (3.90-5.03); White Blood Cell (WBC) Count 12.96 10x3/uL (3.5-10.5)
[2025-07-02 11:51] LABS: ALT (SGPT) 7 U/L (Less than 34); AST (SGOT) 13 U/L (11-34); Albumin 3.4 g/dL (3.1-4.5); Alkaline Phosphatase 81 U/L (40-110); Anion Gap 13 mmol/L (10-20); BUN (Urea Nitrogen) 8 mg/dL (9.8-20.1); Bilirubin, Total 1.0 mg/dL (0.3-1.2); Calc. Creatinine Clearance 0 mL/min (70-130); Calcium 8.9 mg/dL (7.8-10.44); Carbon Dioxide 30 mmol/L (23-31); Chloride 101 mmol/L (98-107); Globulin 3.6 g/dL (2.4-3.5); Glucose 204 mg/dL (80-115); Lipase 7 U/L (8-78); Potassium 3.9 mmol/L (3.5-5.1); Sodium 140 mmol/L (136-145)
[2025-07-02] MEDS ORDERED: Iopamidol 300 61% 100 ML VIAL FS ONE (14:23)
== END 2025-07-02 13:45 | disposition home or self-care (01) ==
LOC: CSHERS 10:55
DX: K59.00 Constipation, unspecified (principal); I11.0 Hypertensive heart disease with heart failure; I50.9 Heart failure, unspecified; E11.9 Type 2 diabetes mellitus without complications; E78.5 Hyperlipidemia, unspecified; K92.89 Other specified diseases of the digestive system; F17.210 Nicotine dependence, cigarettes, uncomplicated; Z86.73 Personal history of transient ischemic attack (TIA), and cerebral infarction without residual deficits
CPT/HCPCS: 36415; 74177; 80053; 83690; 85025

== ENCOUNTER 2025-10-01 08:55 | Emergency (ER) | payer MEDICARE, OTHER ==
[2025-10-01] MEDS ORDERED: Ketorolac Tromethamine 30 MG (1 mL) VIAL ONE (09:33)
[2025-10-01] MEDS ORDERED: Ondansetron PF 4 MG/2 ML Vial ONE (09:33)
[2025-10-01 09:46] LABS: #Basophils 0.08 10x3/uL (0.0-0.2); #Eosinophils 0.24 10x3/uL (0.0-0.5); #Monocytes 0.71 10x3/uL (0.0-1.1); #Neutrophils 8.93 10x3/uL (1.5-8.4); %Basophils 0.6 % (0.0-2.0); %Eosinophils 1.8 % (0.0-6.0); %Lymphocytes 24.6 % (18.0-47.0); %Monocytes 5.3 % (0.0-10.0); %Neutrophils 66.9 % (40.0-75.0); Hematocrit 35.2 % (34.9-44.5); Hemoglobin 12.2 g/dL (12.0-15.5); Mean Corpuscular Hemoglobin 33.1 pg (27.0-33.0); Mean Corpuscular Volume 95.4 fL (81.6-98.3); Platelet Count 350 10x3/uL (150-450); Red Blood Cell (RBC) Count 3.69 10x6/uL (3.90-5.03); White Blood Cell (WBC) Count 13.35 10x3/uL (3.5-10.5)
[2025-10-01 10:18] LABS: ALT (SGPT) 10 U/L (Less than 34); AST (SGOT) 22 U/L (11-34); Albumin 3.4 g/dL (3.1-4.5); Alkaline Phosphatase 91 U/L (40-110); Anion Gap 18 mmol/L (10-20); BUN (Urea Nitrogen) 8 mg/dL (9.8-20.1); Bilirubin, Total 0.6 mg/dL (0.3-1.2); Calc. Creatinine Clearance 0 mL/min (70-130); Calcium 8.5 mg/dL (7.8-10.44); Carbon Dioxide 18 mmol/L (23-31); Chloride 103 mmol/L (98-107); Globulin 2.9 g/dL (2.4-3.5); Glucose 170 mg/dL (80-115); Lipase 20 U/L (8-78); Magnesium 1.5 mg/dL (1.6-2.6); Potassium 3.6 mmol/L (3.5-5.1); Sodium 135 mmol/L (136-145)
[2025-10-01 10:21] LABS: Troponin I Less than 0.010 ng/mL (< 0.028)
[2025-10-01] MEDS ORDERED: Magnesium 2 GM/50 ML BAG (IN WATER) ONE (11:05)
[2025-10-01 13:49] LABS: Glucose, Urine (Dipstick) Normal (Negative); Leukocyte Negative (Negative); Protein, Urine (Dipstick) 15 mg/dl (Neg-Trace); Specific Gravity, Urine 1.010 (1.005-1.030)
[2025-10-01 14:10] LABS: CAUTI Indications for Culture Alt mental st,lethar; RBC/HPF 0-3 HPF (0-3)
[2025-10-01 14:11] LABS: Bacteria/HPF 3+ HPF (None Seen); Mucous/LPF 1+ LPF (<2+); Urine Culture Reflex No No
== END 2025-10-01 15:01 | disposition home or self-care (01) ==
LOC: CSHERS 08:55
DX: J10.1 Influenza due to other identified influenza virus with other respiratory manifestations (principal); I11.0 Hypertensive heart disease with heart failure; I50.9 Heart failure, unspecified; E11.9 Type 2 diabetes mellitus without complications; F17.210 Nicotine dependence, cigarettes, uncomplicated; Z86.73 Personal history of transient ischemic attack (TIA), and cerebral infarction without residual deficits
CPT/HCPCS: 71045; 80053; 81001; 82010; 82962; 83605; 83690; 83735; 84484; 85025; 87428; 93005; 94760; J1885; J3475; 36415; 36416; 96365; 96366; 96375; J2405